=== PATIENT | female | born 1965 | race African-American/Black ===

== ENCOUNTER 2021-07-20 22:11 | Emergency (ER) | payer MEDICAID ==
[~2021-07-20] VITALS: Ht 149.9 cm; Wt 65.8 kg
[2021-07-20 22:30] VITALS: BP 125/60
--- NOTE | 2021-07-20 22:33 | NUR ---
to lobby a/w bed ambulatory
--- NOTE | 2021-07-20 23:26 | NUR ---
PT AMBULATED TO BED #6
[2021-07-20] MEDS ORDERED: ACETAMINOPHEN EXTRA STRENGTH 500 MG TAB PO ONE (23:35)
[2021-07-20] MEDS ORDERED: PRED20TA5 PO (23:38)
[2021-07-20] MEDS ORDERED: [UNRECOGNIZED DRUG - CODE] PO (23:38)
--- NOTE | 2021-07-20 23:45 | NUR ---
56 y/o F BIB SELF FOR DRY COUGH X2 WEEKS. PT STATES THAT SHE WENT TO [facility] RX FOR ANTIBIOTIC . PT STATES SHE STATES THAT THIS HAS NOT HELPED AND WAKES UP IN THE MIDDLE OF THE NIGHT AND BECAME RESTLESS. DENIES N/V/D; SKIN IS PINK/WARM/DRY; AAOX4 WITH EVEN AND STEADY GAIT; LUNGS CLEAR BL; HR EVEN AND REGULAR; PT DENIES ANY FEVER, CP, AT THIS TIME; PATIENT STATES PAIN OF 7/10 AT THIS TIME; VSS; PATIENT POSITIONED FOR COMFORT; HOB ELEVATED; BEDRAILS UP X2; BED DOWN. ER MD MADE AWARE OF PT STATUS. PMH: NONE RX: NONE ALLERGY: ROBUTUSSIN COUGH AND COLD, PENICILLINS
--- NOTE | 2021-07-21 00:15 | NUR ---
pt not happy with dc medications. pt states she not comfortable with that. req to speak to doctor.
[2021-07-21 00:27] VITALS: BP 125/60
--- NOTE | 2021-07-21 00:27 | NUR ---
Patient discharged with v/s stable. Written and verbal after care instructions given and explained. Patient alert, oriented and verbalized understanding of instructions. Ambulatory with steady gait. All questions addressed prior to discharge. ID band removed. Patient advised to follow up with PMD. Rx of ACETAMINOPHEN WITH CODEINE AND PREDNISONE given. Opportunity to ask questions provided and answered.
--- NOTE | 2021-07-21 00:41 | NUR ---
The patient's care was reviewed and supervised by Piper Sawyer RN.
== END 2021-07-21 00:27 | disposition home or self-care (01) ==
LOC: MED 22:11
DX: J20.9 Acute bronchitis, unspecified (principal); R11.0 Nausea; Z88.0 Allergy status to penicillin; Z79.899 Other long term (current) drug therapy
CPT/HCPCS: 71045; 99283